=== PATIENT | female | born 1970 | race Caucasian/White ===

== ENCOUNTER 2017-04-27 12:05 | Emergency (ER) | payer MEDICAID, OTHER ==
[~2017-04-27] VITALS: Wt 63.2 kg
[~2017-04-27 12:05] MED LIST: PRENAT PO
[2017-04-27] MEDS ORDERED: KETOROLAC 30 MG INJ IV STA (14:26)
[2017-04-27] MEDS ORDERED: ONDANSETRON 4 MG INJ IV STA (14:26)
--- NOTE | 2017-04-27 14:31 | ERD ---
ER Documentation Chief Complaint Chief Complaint RIGHT LOWER ABD PAIN, ONSET 1 DAY, NAUSEA HPI Patient is a 47-year-old female with a history of anemia presents ED for concerns of right lower quadrant pain 1 day. Patient was referred to the ED by her primary care physician at the [facility]. Patient was referred to the ED to rule out appendicitis. Patient states her pain started around 3 AM. Patient describes the pain to be poking in nature. Patient states pain is constant. Patient denies any vomiting however she admits to constant nausea. Patient denies any dysuria, frequency, urgency or hematuria. Patient denies any fevers or chills. Patient denies any chest pain or shortness of breath. Patient denies any diarrhea. Patient denies any recent travel. ROS All systems reviewed and are negative except as per history of present illness. Medications Home Meds Active Scripts Ondansetron (Ondansetron Odt) 4 Mg Tab.rapdis, 4 MG PO Q6H Y for NAUSEA AND/OR VOMITING, #10 TAB Prov:VANCE MARK PA-C 04/27/17 Ibuprofen* (Motrin*) 600 Mg Tab, 600 MG PO Q6, #30 TAB Prov:VANCE MARK PA-C 04/27/17 Reported Medications Multivit/Min/Fol Ac/Iron/Pren* ( S*) 1 Tab Tab, 1 TAB PO DAILY, TAB 02/28/14 Allergies Allergies: Coded Allergies: No Known Drug Allergy (Verified Allergy, Unknown, 02/28/14) PMhx/Soc History of Surgery: No Anesthesia Reaction: No Hx Neurological Disorder: No Hx Respiratory Disorders: No Hx Cardiac Disorders: No Hx Psychiatric Problems: No Hx Miscellaneous Medical Probl: No Hx Alcohol Use: No Hx Substance Use: No Hx Tobacco Use: No Physical Exam Vitals Vital Signs Date Time Temp Pulse Resp B/P Pulse Ox O2 Delivery O2 Flow Rate FiO2 04/27/17 12:11 98.0 66 17 125/75 97 Physical Exam GENERAL: Well-developed, well-nourished female. Appears in no acute distress. HEAD: Normocephalic, atraumatic. EYES: Pupils are equally reactive bilaterally. EOMs grossly intact. No conjunctival erythema. ENT: Moist mucous membranes. No uvula deviation. No kissing tonsils. NECK: Supple. No meningismus. Normal range of motion of the neck. LUNG: Clear to auscultation bilaterally. No rhonchi, wheezing, rales or coarse breath sounds. HEART: Regular rate and rhythm. No murmurs, rubs or gallops. ABDOMEN: Soft and nondistended. Tender to palpation in the right lower quadrant. No rebound tenderness, no guarding. (-) McBurney's point tenderness. No CVA tenderness. EXTREMITIES: Equal pulses bilaterally. No peripheral clubbing, cyanosis or edema. No unilateral leg swelling. NEUROLOGIC: Alert and oriented. Moving all four extremities without any difficulty. Normal speech. Steady gait. SKIN: Normal color. Warm and dry. No rashes or lesions. Result Diagram: 04/27/17 1524 04/27/17 1524 Results 24 hrs Laboratory Tests Test 04/27/17 15:24 White Blood Count 6.310^3/ul Red Blood Count 4.1310^6/ul Hemoglobin 12.6g/dl Hematocrit 38.5% Mean Corpuscular Volume 93.2fl Mean Corpuscular Hemoglobin 30.5pg Mean Corpuscular Hemoglobin Concent 32.7g/dl Red Cell Distribution Width 12.5% Platelet Count 30918^3/UL Mean Platelet Volume 9.9fl Neutrophils % 61.8% Lymphocytes % 30.2% Monocytes % 6.3% Eosinophils % 0.9% Basophils % 0.5% Nucleated Red Blood Cells % 0.0/100WBC Neutrophils # 3.910^3/ul Lymphocytes # 1.910^3/ul Monocytes # 0.410^3/ul Eosinophils # 0.110^3/ul Basophils # 0.010^3/ul Nucleated Red Blood Cells # 0.010^3/ul Urine Color STRAW Urine Clarity CLEAR Urine pH 7.0 Urine Specific [place] 1.002 Urine Ketones NEGATIVEmg/dL Urine Nitrite NEGATIVEmg/dL Urine Bilirubin NEGATIVEmg/dL Urine Urobilinogen NEGATIVEmg/dL Urine Leukocyte Esterase NEGATIVELeu/ul Urine Hemoglobin NEGATIVEmg/dL Urine Glucose NEGATIVEmg/dL Urine Total Protein NEGATIVEmg/dl Sodium Level 143mmol/L Potassium Level 3.7mmol/L Chloride Level 103mmol/L Carbon Dioxide Level 28mmol/L Anion Gap 16 Blood Urea Nitrogen 8mg/dl Creatinine 0.58mg/dl Glucose Level 83mg/dl Calcium Level 9.1mg/dl Total Bilirubin 0.9mg/dl Direct Bilirubin 0.00mg/dl Indirect Bilirubin 0.9mg/dl Aspartate Amino Transf (AST/SGOT) 25IU/L Alanine Aminotransferase (ALT/SGPT) 30IU/L Alkaline Phosphatase 65IU/L Total Protein 7.9g/dl Albumin 4.6g/dl Globulin 3.30g/dl Albumin/Globulin Ratio 1.39 Lipase 91U/L Current Medications Medications (Trade) Dose Ordered Sig/Danisha Route PRN Reason Start Time Stop Time Status Last Admin Dose Admin Ondansetron HCl (Zofran Inj) 4 mg ONCE STAT IV 04/27/17 14:26 04/27/17 14:27 DC 04/27/17 15:38 Ketorolac Tromethamine (Toradol) 30 mg ONCE STAT IV 04/27/17 14:26 04/27/17 14:27 DC 04/27/17 15:38 Procedures/MDM ED COURSE: The patient was stable throughout ED course. I kept the patient and/or family informed of laboratory and diagnostic imaging results throughout the ED course. DIAGNOSTIC IMAGING: Read by radiologist. Patient: BERENICE BERGERON : 1970 Age: 47 Sex: F MR #: [id number] DOS: 04/27/17 0000 Ordering MD: VANCE MARK PA-C Location: [facility] Room/Bed: PROCEDURE: US Pelvis Transabdominal and Transvaginal. CLINICAL INDICATION: Pelvic pain. TECHNIQUE: Multiple sonographic images of the pelvis were obtained utilizing gillis scale, Doppler and color flow imaging with transabdominal and endovaginal technique. The images were reviewed on a PACS workstation. COMPARISON: None. FINDINGS: The uterus is visualized and measures 10.5 x 5.3 x 6.3 cm. The endometrial echo complex measures 17.3 mm in thickness. Multiple simple appearing Nabothian cysts are seen in the cervix. No uterine masses are identified. The right ovary measures 3.1 x 2.3 x 2.3. cm . The left ovary measures 2.5 x 1.6 x 1.5 cm. A 2.0 cm heterogeneously hypoechoic nodular echogenicity is identified on the right ovary. Mild vascularity seen in the periphery of this lesion. Both ovaries demonstrate normal vascularity. No adnexal masses or pelvic free fluid are noted. IMPRESSION: 2.0 cm heterogeneously hypoechoic nodular echogenicity on the right ovary. This could reflect an early hemorrhagic cyst versus soft tissue nodule. Continued follow-up with repeat exam in 8 - 12 weeks to assess stability is recommended. If further characterization of the organs of the pelvis is needed MRI should be considered. RPTAT: AA .Ronnie Morrison MD, Date Time Electronically viewed and signed by .Ronnie Morrison MD, MD on 04/27/2017 15:42 .P/ CC: VANCE MARK PA-C Patient: BERENICE BERGERON : 1970 Age: 47 Sex: F MR #: [id number] DOS: 04/27/17 1426 Ordering MD: VANCE MARK PA-C Location: [facility] Room/Bed: PROCEDURE: CT Abdomen and Pelvis without contrast. CLINICAL INDICATION: Abdominal pain TECHNIQUE: CT scan of the abdomen and pelvis was performed on a multidetector high-resolution CT scanner without intravenous contrast. Coronal and sagittal reformatted images were obtained from the axial source images. Images were reviewed on a high-resolution PACS workstation. The total exam CTDI equals 9mGy and the total exam DLP equals 498mGy-cm. One or more of the following dose reduction techniques were used: Automated exposure control, Adjustment of the mA and/or kV according to patient size, and/or use of iterative reconstruction technique. DICOM images are available. COMPARISON: None. FINDINGS: Evaluation of the solid organs is limited given the lack of intravenous contrast administration. The lung bases are clear. Parts of the hepatic dome were not included in the field of view. Unremarkable appearance of the visualized, unenhanced liver. No pancreatic ductal dilatation. Spleen and adrenals are unremarkable. No focal pericholecystic inflammatory changes. No hydronephrosis. No renal or ureteral stone. No bowel obstruction. Normal-caliber appendix. No significant retroperitoneal lymphadenopathy, ascites or evidence of pneumoperitoneum. Trace aortic atherosclerosis. IMPRESSION: No acute intra-abdominal process identified. No renal or ureteral stone. No evidence of bowel obstruction or appendicitis. RPTAT: AA .Devon Finley MD, MD Date Time Electronically viewed and signed by .Devon Finley MD, MD on 04/27/2017 16:36 .T/ CC: VANCE MARK PA-C PROCEDURES: None. MEDICATIONS GIVEN: Toradol, Zofran Patient tolerated medication well with no adverse reactions. Patient reported improvement in pain. MEDICAL DECISION MAKING: This is a 47-year-old female with history of anemia presents ED for concerns of right lower quadrant pain and nausea 1 day. She was referred from her primary care physician to rule out appendicitis. Vital signs were reviewed. Patient is afebrile. CBC showed no evidence of systemic infection or severe anemia. CMP showed no evidence of electrolyte abnormalities, severe acidosis, alkalosis, renal failure , or liver disease. Lipase showed no evidence of acute pancreatitis. UA showed no evidence of acute infection or hematuria. Low suspicion for UTI, pyelonephritis or nephrolithiasis. Urine test was negative. Pelvic US showed 2.0 cm heterogeneously hypoechoic nodular echogenicity on the right ovary. This could reflect an early hemorrhagic cyst versus soft tissue nodule. Continued follow-up with repeat exam in 8 - 12 weeks to assess stability is recommended. CT abdomen and pelvis showed No acute intra-abdominal process identified. No renal or ureteral stone. No evidence of bowel obstruction or appendicitis. I discussed the patient's results with her. Patient was advised to follow-up with her [employer] for monitoring of her ovarian cyst. Patient was given a copy of all imaging study and blood work obtained today. Patient was advised to follow-up with her primary care physician. Patient reports significant improvement in pain prior to discharge. At this time, the patient's presentation is most consistent with right ovarian cyst. Low suspicion for mesenteric ischemia, lower lobe pneumonia, DKA, bowel perforation, cholecystitis , hepatic abscess, pancreatitis, splenic rupture, diverticulitis, UTI, pyelonephritis, nephrolithiasis, appendicitis, constipation, , ectopic . PRESCRIPTIONS: Ibuprofen, Zofran DISCHARGE: At this time, patient is stable for discharge and outpatient management. I have instructed the patient to follow-up with his/her primary care physician in 1-2 days. I have instructed the patient to promptly return to the ER at any time for any new or worsening symptoms including increased pain, nausea, vomiting, diarrhea, fever, weakness or LOC. The patient and/or family expressed understanding of and agreement with this plan. All questions were answered. Home care instructions were provided. Disclaimer: Inadvertent spelling and grammatical errors are likely due to EHR/ dictation software use and do not reflect on the overall quality of patient care. Also, please note that the electronic time recorded on this note does not necessarily reflect the actual time of the patient encounter. Departure Diagnosis: Primary Impression: Right ovarian cyst Condition: Stable Patient Instructions: What Are Ovarian Cysts? Referrals: [facility] YOU HAVE RECEIVED A MEDICAL SCREENING EXAM AND THE RESULTS INDICATE THAT YOU DO NOT HAVE A CONDITION THAT REQUIRES URGENT TREATMENT IN THE EMERGENCY DEPARTMENT. FURTHER EVALUATION AND TREATMENT OF YOUR CONDITION CAN WAIT UNTIL YOU ARE SEEN IN YOUR DOCTORS OFFICE WITHIN THE NEXT 1-2 DAYS. IT IS YOUR RESPONSIBILITY TO MAKE AN APPOINTMENT FOR FOLOW-UP CARE. IF YOU HAVE A PRIMARY DOCTOR --you should call your primary doctor and schedule an appointment IF YOU DO NOT HAVE A PRIMARY DOCTOR YOU CAN CALL OUR PHYSICIAN REFERRAL HOTLINE AT IF YOU CAN NOT AFFORD TO SEE A PHYSICIAN YOU CAN CHOSE FROM THE FOLLOWING [facility] [address] [facility]. [facility] [address] [facility] [address] [facility] [address] [facility]. [facility] [address] [facility]. [facility]. [address] [facility] YOU HAVE RECEIVED A MEDICAL SCREENING EXAM AND THE RESULTS INDICATE THAT YOU DO NOT HAVE A CONDITION THAT REQUIRES URGENT TREATMENT IN THE EMERGENCY DEPARTMENT. FURTHER EVALUATION AND TREATMENT OF YOUR CONDITION CAN WAIT UNTIL YOU ARE SEEN IN YOUR DOCTORS OFFICE WITHIN THE NEXT 1-2 DAYS. IT IS YOUR RESPONSIBILITY TO MAKE AN APPOINTMENT FOR FOLOW-UP CARE. IF YOU HAVE A PRIMARY DOCTOR --you should call your primary doctor and schedule and appointment IF YOU DO NOT HAVE A PRIMARY DOCTOR YOU CAN CALL OUR PHYSICIAN REFERRAL HOTLINE AT . IF YOU CAN NOT AFFORD TO SEE A PHYSICIAN YOU CAN CHOSE FROM THE FOLLOWING [facility] INSTITUTIONS: [facility] [address] [place] [address] [facility] [address] [place] [address] [facility] [address] [place] [address] [employer] REFERRAL LIST Additional Instructions: Call your primary care doctor TOMORROW for an appointment during the next 1-2 days.See the doctor sooner or return here if your condition worsens before your appointment time. Follow up with your doctor for your ovarian cyst. VANCE MARK PA-C Apr 27, 2017 14:31
[2017-04-27 15:42] LABS: BASOPHILS % 0.5 % (0.0-2.0); EOSINOPHILS # 0.1 10^3/ul (0.0-0.5); EOSINOPHILS % 0.9 % (0.0-7.0); HEMATOCRIT 38.5 % (37.0-47.0); HEMOGLOBIN 12.6 g/dl (12.0-16.0); LYMPHOCYTES # 1.9 10^3/ul (0.8-2.9); LYMPHOCYTES % 30.2 % (15.0-51.0); MEAN CORPUSCULAR HEMOGLOBIN 30.5 pg (29.0-33.0); MEAN CORPUSCULAR HGB CONC 32.7 g/dl (32.0-37.0); MEAN CORPUSCULAR VOLUME 93.2 fl (82.0-101.0); MEAN PLATELET VOLUME 9.9 fl (7.4-10.4); MONOCYTE # 0.4 10^3/ul (0.3-0.9); MONOCYTES % 6.3 % (0.0-11.0); NEUTROPHIL # 3.9 10^3/ul (1.6-7.5); NEUTROPHILS % 61.8 % (39.0-77.0); PLATELET COUNT 244 10^3/UL (140-415); RED BLOOD COUNT 4.13 10^6/ul (4.20-5.40); RED CELL DISTRIBUTION WIDTH 12.5 % (11.5-14.5); WHITE BLOOD COUNT 6.3 10^3/ul (4.8-10.8)
--- NOTE | 2017-04-27 15:42 | RADRPT ---
PROCEDURE: US Pelvis Transabdominal and Transvaginal. CLINICAL INDICATION: Pelvic pain. TECHNIQUE: Multiple sonographic images of the pelvis were obtained utilizing gillis scale, Doppler a nd color flow imaging with transabdominal and endovaginal technique. The images were reviewed on a PACS workstation. COMPARISON: None. FINDINGS: The uterus is visualized and measures 10.5 x 5.3 x 6.3 cm. The endometrial echo complex measures 17. 3 mm in thickness. Multiple simple appearing Nabothian cysts are seen in the cervix. No uterine mass es are identified. The right ovary measures 3.1 x 2.3 x 2.3. cm . The left ovary measures 2.5 x 1.6 x 1.5 cm. A 2.0 c m heterogeneously hypoechoic nodular echogenicity is identified on the right ovary. Mild vascularity seen in the periphery of this lesion. Both ovaries demonstrate normal vascularity. No adnexal masses or pelvic free fluid are noted. IMPRESSION: 2.0 cm heterogeneously hypoechoic nodular echogenicity on the right ovary. This could reflect an ear ly hemorrhagic cyst versus soft tissue nodule. Continued follow-up with repeat exam in 8 - 12 weeks to assess stability is recommended. If further characterization of the organs of the pelvis is needed MRI should be considered. RPTAT: AA .Ronnie Morrison MD, Date Time Electronically viewed and signed by .Ronnie Morrison MD, MD on 04/27/2017 15:42 .P/
[2017-04-27 15:45] LABS: ADD UMIC NO; UR ASCORBIC ACID NEGATIVE (NEGATIVE); UR BILIRUBIN (Dip) NEGATIVE (NEGATIVE); UR BLOOD (Dip) NEGATIVE (NEGATIVE); UR CLARITY CLEAR (CLEAR); UR COLOR STRAW (YELLOW); UR GLUCOSE (Dip) NEGATIVE (NEGATIVE); UR KETONES (Dip) NEGATIVE (NEGATIVE); UR LEUKOCYTE ESTERASE (Dip) NEGATIVE Leu/ul (NEGATIVE); UR NITRITE (Dip) NEGATIVE (NEGATIVE); UR SPECIFIC GRAVITY (Dip) 1.002 (1.003-1.030); UR TOTAL PROTEIN (Dip) NEGATIVE (NEGATIVE); UR UROBILINOGEN (Dip) NEGATIVE (NEGATIVE)
[2017-04-27 16:02] LABS: ALBUMIN 4.6 g/dl (3.3-4.9); ALBUMIN/GLOBULIN RATIO 1.39; BILIRUBIN,INDIRECT 0.9 mg/dl (0-1.1); BILIRUBIN,TOTAL 0.9 mg/dl (0.2-1.3); CALCIUM 9.1 mg/dl (8.4-10.2); CREATININE 0.58 mg/dl (0.44-1.00); POTASSIUM 3.7 mmol/L (3.5-5.1); TOTAL PROTEIN 7.9 g/dl (6.1-8.1)
--- NOTE | 2017-04-27 16:37 | RADRPT ---
PROCEDURE: CT Abdomen and Pelvis without contrast. CLINICAL INDICATION: Abdominal pain TECHNIQUE: CT scan of the abdomen and pelvis was performed on a multidetector high-resolution CT s cann without intravenous contrast. Coronal and sagittal reformatted images were obtained from the axial source images. Images were reviewed on a high-resolution PACS workstation. The total exam CTD I equals 9mGy and the total exam DLP equals 498mGy-cm. One or more of the following dose reduction t echniques were used: Automated exposure control, Adjustment of the mA and/or kV according to patient size, and/or use of iterative reconstruction technique. DICOM images are available. COMPARISON: None. FINDINGS: Evaluation of the solid organs is limited given the lack of intravenous contrast administration. The lung bases are clear. Parts of the hepatic dome were not included in the field of view. Unremarkable appearance of the vis ualized, unenhanced liver. No pancreatic ductal dilatation. Spleen and adrenals are unremarkable. No focal pericholecystic inflammatory changes. No hydronephrosis. No renal or ureteral stone. No bowel obstruction. Normal-caliber appendix. No significant retroperitoneal lymphadenopathy, ascites or evidence of pneumoperitoneum. Trace aortic atherosclerosis. IMPRESSION: No acute intra-abdominal process identified. No renal or ureteral stone. No evidence of bowel obstruction or appendicitis. RPTAT: AA .Devon Finley MD, MD Date Time Electronically viewed and signed by .Devon Finley MD, MD on 04/27/2017 16:36 .T/
[2017-04-27] MEDS ORDERED: IBUP-1542 PO (17:04)
[2017-04-27] MEDS ORDERED: ONDA4TAB14 PO (17:05)
== END 2017-04-27 17:49 | disposition home or self-care (01) ==
LOC: FTE 12:05
DX: N83.201 Unspecified ovarian cyst, right side (principal)
CPT/HCPCS: 36415; 74176; 76830; 76856; 80053; 81003; 83690; 85025; 96374; 96375; J1885; J2405; Z7502